=== PATIENT | female | born 2000 | race American Indian/Alaskan Native ===

== ENCOUNTER 2020-12-20 10:28 | Emergency (ER) | payer BC ==
--- NOTE | 2020-12-20 13:11 | Emergency Department Report ---
ED General Adult HPI - General Chief complaint: Urogenital-Female Stated complaint: BREAST PAIN Time Seen by Provider: 12/20/20 12:51 Source: patient Mode of arrival: Ambulatory Limitations: No Limitations - History of Present Illness Initial comments: Patient is a 20-year-old female presents emergency room complaints of right breast pain that began 1 week ago. She has associated right breast swelling. She states that this morning she had some crusting drainage to her right nipple. She denies ever having this in the past. She denies any nipple bleeding, fever, chills, vomiting. She denies any medication allergies. She states her last menstrual cycle was 12/13/2020. Patient has bar piercings present to the bilateral nipples. She states that she removed the right sided piercing this morning. She states that she has had the piercings for over a year. Her history says that she has a history of a breast surgery, she states that she has not had any breast surgeries. - Related Data Previous Rx's Medication Instructions Recorded Last Taken Type Naproxen 375 mg PO BID PRN #14 tablet 12/20/20 Unknown Rx ED Review of Systems ROS: Stated complaint: BREAST PAIN Other details as noted in HPI Comment: All other systems reviewed and negative ED Past Medical Hx - Past Medical History Previous Medical History?: Yes - Surgical History Past Surgical History?: Yes Hx Breast Surgery: Yes - Medications Home Medications: Home Medications Medication Instructions Recorded Confirmed Last Taken Type Naproxen 375 mg PO BID PRN #14 tablet 12/20/20 Unknown Rx ED Physical Exam - General Limitations: No Limitations General appearance: alert, in no apparent distress - Head Head exam: Present: atraumatic, normocephalic - Eye Eye exam: Present: normal appearance - ENT ENT exam: Present: mucous membranes moist - Extremities Exam Extremities exam: Present: other (molding machine tender: christy edwards PA-C, right breast is significantly engorged compared to the left, there is a 4 cm area of induration present just inferior to the nipple, no erythema or increased warmth to the breast skin, no nipple drainage present, no peau d'orange) - Neurological Exam Neurological exam: Present: alert, oriented X3 - Psychiatric Psychiatric exam: Present: normal affect, normal mood - Skin Skin exam: Present: warm, dry, intact ED Course Vital Signs 12/20/20 12/20/20 12:49 15:49 Temperature 99.1 F Pulse Rate 71 93 H Respiratory 16 16 Rate Blood Pressure 125/78 Blood Pressure 113/46 [Right] O2 Sat by Pulse 100 100 Oximetry ED Medical Decision Making - Radiology Data Radiology results: report reviewed Ordering Physician: DEVEN ESCALANTE Date of Service: 12/20/20 Procedure(s): US breast RT limited Accession Number(s): [id number] cc: DEVEN ESCALANTE ULTRASOUND BREAST RIGHT LIMITED, 12/20/2020 CLINICAL INFORMATION / INDICATION: right breast swelling/pain, concern for abscess. TECHNIQUE: Targeted ultrasound evaluation was performed of the area of interest. COMPARISON: None. FINDINGS: Targeted ultrasound of the area of concern in the 12:00 subareolar right breast reveals an irregular hypoechoic masslike area measuring up to approximately 6.5 x 4.5 x 5.9 cm. There is increased through transmission. There is slightly increased vascularity in the surrounding soft tissues. IMPRESSION: 1. An irregular hypoechoic masslike area corresponds with the site of concern in the right breast. While this could represent an infectious or inflammatory process, this is overall considered suspicious for malignancy, and ultrasound-guided biopsy is recommended. Follow up recommendation: Biopsy BI-RADS Category 4: Suspicious for Malignancy. A normal or "negative" report should not preclude biopsy or follow-up of a clinically suspicious finding. Signer Name: Hedy Cassidy MD Signed: 12/20/2020 3:26 PM Workstation Name: [id number] Transcribed By: [facility] Dictated By: Hedy Cassidy MD Electronically Authenticated By: Hedy Cassidy MD Signed Date/Time: 12/20/20 1526 DD/ 1524 TD/TT: Print - Medical Decision Making Patient is a 20-year-old female presents emergency room complaints of right breast pain that began 1 week ago. She has associated right breast swelling. She states that this morning she had some crusting drainage to her right nipple. She denies ever having this in the past. She denies any nipple bleeding, fever, chills, vomiting. She denies any medication allergies. She states her last menstrual cycle was 12/13/2020. Patient has bar piercings present to the bilateral nipples. She states that she removed the right sided piercing this morning. She states that she has had the piercings for over a year. Her history says that she has a history of a breast surgery, she states that she has not had any breast surgeries. Vitals are normal. On exam:molding machine tender: christy edwards PA-C, right breast is significantly engorged compared to the left, there is a 4 cm area of induration present just inferior to the nipple, no erythema or increased warmth to the breast skin, no nipple drainage present, no peau d'orange. Due to concerns for possible breast abscess as she has pain with palpation and previous nipple ring present, ultrasound ordered. Breast ultrasound shows: 1. An irregular hypoechoic masslike area corresponds with the site of concern in the right breast. While this could represent an infectious or inflammatory process, this is overall considered suspicious for malignancy, and ultrasound-guided biopsy is recommended. Follow up recommendation: Biopsy BI-RADS Category 4: Suspicious for Malignancy. There is no erythema or increased warmth to suggest mastitis. Discussed results with patient and she was given a copy of her ultrasound report. Discussed the importance of following up with a breast surgeon. I believe the information for Dr. Mendez is a previous location, I looked up the new location and gave this information to patient. Advised patient Take medication as prescribed. Follow-up with Dr. Mendez, breast surgeon. Return to emergency room for any new or worsening symptoms. Critical care attestation.: If time is entered above; I have spent that time in minutes in the direct care of this critically ill patient, excluding procedure time. ED Disposition Clinical Impression: Breast mass Disposition: HOME / SELF CARE / HOMELESS Is pt being admited?: No Does the pt Need Aspirin: No Condition: Stable Additional Instructions: Take medication as prescribed. Follow-up with Dr. Mendez, breast surgeon. Return to emergency room for any new or worsening symptoms. Prescriptions: Naproxen 375 mg PO BID PRN #14 tablet PRN Reason: pain Referrals: ALAINA MENDEZ MD [Staff Physician] - 2-3 Days Time of Disposition: 15:39 Print Language: JAPANESE
--- NOTE | 2020-12-20 15:30 | Ultrasound Report ---
ULTRASOUND BREAST RIGHT LIMITED, 12/20/2020 CLINICAL INFORMATION / INDICATION: right breast swelling/pain, concern for abscess. TECHNIQUE: Targeted ultrasound evaluation was performed of the area of interest. COMPARISON: None. FINDINGS: Targeted ultrasound of the area of concern in the 12:00 subareolar right breast reveals an irregular hypoechoic masslike area measuring up to approximately 6.5 x 4.5 x 5.9 cm. There is increased through transmission. There is slightly increased vascularity in the surrounding soft tissues. IMPRESSION: 1. An irregular hypoechoic masslike area corresponds with the site of concern in the right breast. Wh ile this could represent an infectious or inflammatory process, this is overall considered suspicious for malignancy, and ultrasound-guided biopsy is recommended. Follow up recommendation: Biopsy BI-RADS Category 4: Suspicious for Malignancy. A normal or "negative" report should not preclude biopsy or follow-up of a clinically suspicious find ing. Signer Name: Hedy Cassidy MD Signed: 12/20/2020 3:26 PM Workstation Name: [id number]
[2020-12-20 15:51] VITALS: BP 113/46
== END 2020-12-20 15:50 | disposition home or self-care (01) ==
LOC: ED 10:28
DX: N63.0 Unspecified lump in unspecified breast (principal); Z98.890 Other specified postprocedural states